=== PATIENT | male | born 1935 | race Caucasian/White ===

== ENCOUNTER → 2017-03-10 | Outpatient (CLI) | payer OTHER ==
[~2017-03-10] MED LIST: AMLO5TAB2 PO; ASPI-621 PO; CLOP75TA PO; DOCU-30 PO; DOCU100C8 PO; EZET10TA3 PO; FURO20TA3 PO; HYDR-3240 PO; LEVO25TA2 PO; LISI-170 PO; LISI5TAB7 PO; NITR0.4T8 SL; PANT40TA5 PO; POTA10TA5 PO; ROSU5TAB PO; TAMS-11 PO
== END | disposition home or self-care (01) ==
LOC: EDSTATUS 02-24 13:43 → ROC 11:13
PROVIDERS: ATTEND Radiology Radiation Oncology
DX: C61 Malignant neoplasm of prostate (principal); C79.51 Secondary malignant neoplasm of bone
CPT/HCPCS: 99212; G0463